=== PATIENT | male | born 1990 | race Two or more races ===

== ENCOUNTER 2022-10-31 07:41 | Inpatient (IN) | payer OTHER ==
[2022-10-31] VITALS (12 sets, daily range): BP systolic 102–129; BP diastolic 56–87
[~2022-10-31] VITALS: Ht 167.6 cm; Wt 60.3 kg
--- NOTE | 2022-10-31 08:00 | NUR ---
ESTABLISHED IV ACCESS 18G LEFT AC. BLOOD DRAWN AND SENT TO LAB.
--- NOTE | 2022-10-31 08:05 | NUR ---
blood collected sent to lab
--- NOTE | 2022-10-31 08:07 | NUR ---
PT DESATURATED TO 80% ON NC. NRB PLACED.
[2022-10-31] MEDS ORDERED: NALOXONE PREFILLED SYRINGE 2 MG/2 ML SYRINGE ONE (08:17)
--- NOTE | 2022-10-31 08:20 | NUR ---
NARCAN GIVEN ORDERED. PT IS MORE AWAKE.
--- NOTE | 2022-10-31 08:20 | NUR ---
MOVE SHEET SUBMITTED.
[2022-10-31] MEDS ORDERED: NALOXONE HCL 0.4 MG/ML AMPUL IV PRN (08:30)
[2022-10-31 08:36] LABS: BASOPHILS % (AUTO) 0.1 % (0.0-2.0); EOSINOPHILS % (AUTO) 0.1 % (0.0-6.0); HEMATOCRIT 43 % (39-51); HEMOGLOBIN 13.4 g/dL (13.5-17.5); LYMPHOCYTES # (AUTO) 1.4 K/uL (0.8-4.8); LYMPHOCYTES % (AUTO) 6.5 % (20.0-44.0); MEAN CORPUSCULAR HGB CONC 31 g/dl (31.0-36.0); MEAN CORPUSCULAR VOLUME 92 fL (80-96); MONOCYTES # (AUTO) 1.3 K/uL (0.1-1.30); MONOCYTES % (AUTO) 6.1 % (2.0-12.0); NEUTROPHILS # (AUTO) 18.3 K/uL (1.8-8.9); NEUTROPHILS % (AUTO) 87.2 % (43.0-81.0); PLATELET COUNT (AUTO) 339 K/uL (150-450); RED BLOOD CELL COUNT(AUTO) 4.63 MIL/uL (4.5-6.0)
--- NOTE | 2022-10-31 08:45 | NUR ---
ABG REFUSED. PT NON COMPLIANT. KNEDELL SIEGEL AWARE.
--- NOTE | 2022-10-31 08:45 | NUR ---
COVID SWAB COLLECTED AND SENT TO LAB
--- NOTE | 2022-10-31 08:46 | NUR ---
URINE COLLECTED AND SENT TO LAB
[2022-10-31] MEDS ORDERED: OLAN5TAB3 PO (08:55)
[2022-10-31] MEDS ORDERED: BUSP10TA35 PO (08:55)
[2022-10-31] MEDS ORDERED: PIPERACILLIN /TAZOBACTAM 3.375 G in IV D5W 50 ML IV ONE (09:00)
[2022-10-31 09:06] LABS: BILIRUBIN,URINE NEGATIVE (NEGATIVE); COLOR,URINE YELLOW (YELLOW); LEUKOCYTE ESTERASE ,URINE NEGATIVE (NEGATIVE); NITRITE, URINE NEGATIVE (NEGATIVE); PH,URINE 5.5 (5.0-8.0); PROTEIN,URINE 2+ mg/dl (NEGATIVE); UGLUCOSE NEGATIVE (NEGATIVE); UROBILINOGEN,URINE 0.2 EU/dL (0.2)
[2022-10-31 09:07] LABS: BACTERIA,URINE None seen /HPF (None Seen); RBC,URINE 0-2 /HPF (0-2); SQUAMOUS EPITHELIAL CELL,UR Few /HPF (None Seen); WBC,URINE 0-2 /HPF (0-3)
--- NOTE | 2022-10-31 09:09 | NUR ---
PT TAKEN TO CT VIA RCHRISTOPHER.
[2022-10-31 09:10] LABS: CALCIUM, SERUM 8.7 mg/dL (8.5-10.1); CARBON DIOXIDE 25 mmol/L (21-32); CHLORIDE 98 mmol/L (98-107); CREATININE 1.6 mg/dL (0.6-1.3); GLUCOSE 87 mg/dL (74-106); POTASSIUM 4.2 mmol/L (3.5-5.1); SODIUM SERUM 136 mmol/L (136-145); UREA NITROGEN, BLOOD 38 mg/dL (7-18)
[2022-10-31 09:18] LABS: ALANINE AMINOTRANSFERASE 175 U/L (12-78); ALCOHOL, BLOOD < 3 mg/dL (0-0); ALKALINE PHOSPHATASE 81 U/L (46-116); ASPARTATE AMINOTRANSFERASE 203 U/L (15-37); BILIRUBIN,DIRECT 0.1 mg/dL (0.0-0.2); BILIRUBIN,TOTAL 0.3 mg/dL (0.2-1.0); TOTAL PROTEIN, SERUM 7.3 g/dL (6.4-8.2)
--- NOTE | 2022-10-31 09:52 | NUR ---
DR. WHITLEY [phone]
[2022-10-31] MEDS ORDERED: VANCOMYCIN 1 GM in IV D5W 250 ML IV ONE (11:00)
[2022-10-31] MEDS ORDERED: ASPIRIN 81 MG TAB.CHEW PO ONE (11:00)
[2022-10-31] MEDS ORDERED: IV NS 0.9% 1,000 ML BAG IV ONE (11:00)
--- NOTE | 2022-10-31 11:20 | NUR ---
PT IN BED ROUSABLE AND RESPONSIVE. CHANGED FROM NON-REBREATHER TO SIMPLE MASK 6L. TOLORATING WELL WITH O2 SAT 100%, BREATHING IS SHALLOW BUT EVEN AND UNLABORED. REPEATE BP READING SHOW 119/70. PERIPHERAL PULSES ARE +2 NAIL BEDS ARE PINK
[2022-10-31] MEDS ORDERED: ASPIRIN 325 MG TABLET ONE (11:28)
[2022-10-31] MEDS ORDERED: LORAZEPAM INJ 2 MG/ML VIAL IV PRN (11:30)
[2022-10-31] MEDS ORDERED: ONDANSETRON HCL/PF 4 MG/2 ML VIAL IVP PRN (11:30)
[2022-10-31] MEDS ORDERED: ACETAMINOPHEN 325 MG TABLET PO PRN (11:30)
[2022-10-31] MEDS ORDERED: Z GUARD REMEDY 4 OZ OINT TP PRN (11:30)
[2022-10-31] MEDS ORDERED: MAG HYDROX/AL HYDROX/SIMETH 30 ML UDC PO PRN (11:30)
[2022-10-31] MEDS ORDERED: MAGNESIUM HYDROXIDE 30 ML UDC PO PRN (11:30)
--- NOTE | 2022-10-31 11:44 | NUR ---
REPORT GIVEN TO MEHDI MCGRATH
--- NOTE | 2022-10-31 11:52 | NUR ---
PT TRANSFERRED TO ICU VIA RMIAMI.
--- NOTE | 2022-10-31 13:19 | NUR ---
NURSING NOTES 1305 RECEIVED CALL FROM LAB STATING THAT PT'S CURRENT LACTIC IS AT 7.4. NOTIFIED DR. SPANGLER.
[2022-10-31] MEDS: CEFEPIME 2 GM in IV D5W 100 ML IV SCH (13:31)
[2022-10-31] MEDS: IV NS 0.9% 1,000 ML IV SCH ×2 (13:31→21:58)
--- NOTE | 2022-10-31 20:00 | NUR ---
Received patient resting in no acute distress.VS stable.Respiration even & unlabored.Patient noncompliant with treatment.Refused O2 NRB.Saturation deep down to 81% but non sustaining it goes up to 93%- 94%.NPO with IVF infusing well to left AC.Site intact.Voiding per urinal. Safety precaution maintained.Call light at bedside.
[2022-10-31] MEDS: VANCOMYCIN 0.75 GM in IV D5W 250 ML IV SCH (22:51)
[2022-11-01] VITALS (13 sets, daily range): BP systolic 107–128; BP diastolic 53–79
[2022-11-01] MEDS: CEFEPIME 2 GM in IV D5W 100 ML IV SCH ×3 (00:41→21:00)
[2022-11-01 03:32] LABS: HEMATOCRIT 36 % (39-51); HEMOGLOBIN 11.8 g/dL (13.5-17.5); LYMPHOCYTES # (AUTO) 0.8 K/uL (0.8-4.8); LYMPHOCYTES % (AUTO) 4.2 % (20.0-44.0); MEAN CORPUSCULAR HGB CONC 33 g/dl (31.0-36.0); MEAN CORPUSCULAR VOLUME 90 fL (80-96); MONOCYTES # (AUTO) 0.4 K/uL (0.1-1.30); MONOCYTES % (AUTO) 2.2 % (2.0-12.0); NEUTROPHILS % (AUTO) 93.6 % (43.0-81.0); PLATELET COUNT (AUTO) 237 K/uL (150-450); RED BLOOD CELL COUNT(AUTO) 3.95 MIL/uL (4.5-6.0); WHITE BLOOD COUNT (AUTO) 19.3 K/uL (4.3-11.0)
[2022-11-01 04:02] LABS: CALCIUM, SERUM 7.9 mg/dL (8.5-10.1); CREATININE 0.8 mg/dL (0.6-1.3); MAGNESIUM 2.1 mg/dL (1.8-2.4); PHOSPHORUS 1.8 mg/dL (2.5-4.9); POTASSIUM 3.6 mmol/L (3.5-5.1)
[2022-11-01] MEDS: IV NS 0.9% 1,000 ML IV SCH ×2 (04:27→11:14)
--- NOTE | 2022-11-01 07:00 | NUR ---
Patient awake oriented x3.VS remains stable.Denies pain or any discomfort.Patient get out of bed to urinate.Urine output adequate.No significant changes noted during the shift.Endorsed to day shift for IDALMIS.
--- NOTE | 2022-11-01 10:00 | NUR ---
NURSING NOTES PT TRANSFERRED TO [facility] GAVE REPORT TO STORM SASH MAKER FOR CONTINUATION OF CARE. PT IS STABLE, VSS, NO COMPLAINT OF PAIN AT THIS TIME.
--- NOTE | 2022-11-01 10:20 | NUR ---
RN NOTE PATIENT WAS TRANSFERRED FROM ICU VIA GURNEY WITH NO SIGNED OF DISTRESS. REPORT RECEIVED FROM ICU NURSE. ORIENTED PATIENT TO ROOM SET UP AND EDUCATED ON THE USE OF CALL LIGHT. PATIENT REFUSED SKIN ASSESSMENT AND PICTURES. V/S TAKEN, STABLE AND RECORDED. PATIENT AWAKE IN BED RESTING, A/O X 3. NO S/S OF PAIN NOTED AT THIS TIME. ON ROOM AIR BREATHING EVEN UNLABORED, NO DISTRESS OR SHORTNESS OF BREATH NOTED AT THIS TIME. IV ACCESS LAC #20G, INTACT PATENT AND FLUSHING WELL. PATIENT WITH EXTERNAL FLAT FINISHER WITH CURRENT READING OF ST AND HR 110. FALL AND SAFETY MEASURES IN PLACE, BED ALARM ON, BED IN LOW AND LOCK POSITION, CALL LIGHT AND TABLE WITHIN EASY REACH, SIDE RAILS UP X2. WILL CONTINUE TO MONITOR.
[2022-11-01] MEDS ORDERED: NEUTRA PHOS 1 POWD.PACKET PO ONE (11:00)
[2022-11-01] MEDS: VANCOMYCIN 0.75 GM in IV D5W 250 ML IV SCH ×2 (11:14→17:10)
--- NOTE | 2022-11-01 18:54 | NUR ---
RN CLOSING NOTES PATIENT AWAKE IN BED RESTING, A/O X 3. UNCOOPERATIVE, PATIENT REFUSING SKIN ASSESSMENT AND PICTURES. PATIENT NOW IS REFUSING IV FLUIDS MULTIPLE ATTEMPTS WERE MADE BUT PATIENT KEEP REFUSING. DOCTOR ANÍBAL WAS INFORMED, IV FLUIDS CAN BE D/C PER DOCTOR. PATIENT WON'T STOP SCREAMING AND ASKING FOR FOOD AND DRINKS, ADDITIONAL DRINKS, SNACKS, SANDWICH WAS PROVIDE TO PATIENT. NO S/S OF PAIN NOTED AT THIS TIME. ON ROOM AIR BREATHING EVEN UNLABORED, NO DISTRESS OR SHORTNESS OF BREATH NOTED AT THIS TIME. IV ACCESS LAC #20G, INTACT PATENT AND FLUSHING WELL. PATIENT HAD EXTERNAL OFFICE COPY SELECTOR WITH CURRENT READING OF ST AND HR 110 BUT PATIENT KEPT TAKING IT OFF, DOCTOR WAS INFORMED AND IT WAS D/C. EXTERNAL OFFICE COPY SELECTOR WAS RETURNED TO TELE DESK. FALL AND SAFETY MEASURES IN PLACE, BED ALARM ON, BED IN LOW AND LOCK POSITION, CALL LIGHT AND TABLE WITHIN EASY REACH, SIDE RAILS UP X2. WILL ENDORSE TO RATE ENGINEER NURSE.
--- NOTE | 2022-11-01 19:15 | NUR ---
RN OPENING NOTES RECEIVED PT AWAKE IN BED RESTING, A/O X3. UNCOOPERATIVE, C/O OF BEING COLD BUT REFUSES TO WEAR CLOTHES/GOWN. PATIENT REFUSING SKIN ASSESSMENT. NO S/S OF PAIN NOTED AT THIS TIME. ON RA BREATHING EVEN UNLABORED, NO DISTRESS OR SHORTNESS OF BREATH NOTED AT THIS TIME. IV ACCESS LAC #20G, INTACT PATENT AND FLUSHING WELL. FALL AND SAFETY MEASURES IN PLACE, BED ALARM ON, BED IN LOW AND LOCK POSITION, CALL LIGHT AND TABLE WITHIN EASY REACH, SIDE RAILS UP X2. WILL CONTINUE TO MONITOR AND ASSIST.
--- NOTE | 2022-11-01 20:45 | NUR ---
RN NOTE PT REFUSING TO TAKE SCHEDULED MAXIPIME 2GM FOR 2100. PT STATES HE'S OKAY. EXPLAINED TO PT RISKS/BENEFITS OF MEDICATION AND VERBALIZED UNDERSTANDING.
[2022-11-01] MEDS ORDERED: IV NS 0.9% 1,000 ML IV PRN (21:30)
[2022-11-02] VITALS: BP 140/93
[2022-11-02 00:05] VITALS: BP 140/93
[2022-11-02] MEDS: VANCOMYCIN 0.75 GM in IV D5W 250 ML IV SCH ×3 (02:00→17:20)
--- NOTE | 2022-11-02 04:24 | NUR ---
RN NOTE PT CONTINUES TO REFUSED IV ANTIBIOTIC MEDS. EXPLAINED RISK/BENEFITS. PT JUST REFUSES AND STATES "I JUST WANT TO REST".
[2022-11-02] MEDS: CEFEPIME 2 GM in IV D5W 100 ML IV SCH ×3 (04:26→20:23)
--- NOTE | 2022-11-02 06:47 | NUR ---
RN CLOSING NOTES PT SLEEPING IN BED AT THIS TIME. A/O X3. UNCOOPERATIVE. DENIES PAIN AT THIS TIME. STABLE ON RA BREATHING EVEN UNLABORED, NO DISTRESS OR SHORTNESS OF BREATH NOTED. IV ACCESS LAC #20G, INTACT PATENT AND FLUSHING WELL. ALL CARE PROVIDED. PT REFUSING ALL MEDS THROUGHOUT THE SHIFT AND BLOOD DRAW IN AM. FALL AND SAFETY MEASURES MAINTAINED: BED ALARM ON, BED IN LOW AND LOCK POSITION, CALL LIGHT AND TABLE WITHIN EASY REACH, SIDE RAILS UP X2. WILL ENDORSE IDALMIS TO DAY SHIFT NURSE.
--- NOTE | 2022-11-02 07:46 | NUR ---
MS RN OPENING NOTES: RECEIVED PT ASLEEP, EASILY ROUSED, A/O X3, PER PM, SHIFT, PT IS UNCOOPERATIVE WITH PLAN OF CARE. DENIES PAIN AT THIS TIME. STABLE ON RA BREATHING EVEN UNLABORED, NO DISTRESS OR SHORTNESS OF BREATH NOTED. IV ACCESS LAC #20G, INTACT PATENT AND FLUSHING WELL. SAFETY MEASURES MAINTAINED: BED ALARM ON, BED IN LOW AND LOCK POSITION, CALL LIGHT AND TABLE WITHIN EASY REACH, SIDE RAILS UP X2. WILL CONT WITH PLAN OF CARE DURING SHIFT.
--- NOTE | 2022-11-02 09:50 | NUR ---
RN NOTES: PT REFUSED AM LABS @ 0800, OF BLOOD DRAW, PT STILL REFUSED AND STATED " I DON'T NEED IT, I WANT TO GO HOME". PT REFUSED IV ABX RN EXPLAINED RATIONALE OF MEDICATION, PT STILL REFUSED PT REFUSED CHEST XRAY, STATES " HE DOESN'T NEED IT" PT THINKS THAT "HOSPITAL JUST WANTS TO MAKE MONEY FROM ME". RN STATES RATIONALE OF TEST, PT STILL DECLINED. MADE MACHINE LONG GOODS HELPER AWARE.
--- NOTE | 2022-11-02 11:47 | NUR ---
DECLINED NEW LAB ORDERS, EXPLAINED TO PT IMPORTANCE OF LAB DRAW, STILL DECLINED. MADE SENIOR SYSTEMS ENGINEER AWARE
--- NOTE | 2022-11-02 13:00 | NUR ---
RN NOTES: PT REMOVED IV ACCESS, STATES " I DON'T NEED THIS SHIT ANYMORE, PLEASE CALL MY MOM I NEED TO GO HOME". RN CONTACTED PT'S MOTHER, CONTACT # PROVIDED BY PT. PT SPOKE TO HIS MOTHER, PASSED PHONE TO RN. PT'S MOTHER STATES SHE "CAN'T TAKE HER SON IN" AND THAT SHE NEEDS TO CONTACT PT'S PRIMARY MD TO GET HIM SOME RESOURCES. RN WILL FOLLOW UP WITH COMMUNICATION ARTS LECTURER.
--- NOTE | 2022-11-02 16:00 | NUR ---
RN NOTES; RN SPOKE TO DR MCCONNELL, SHANEL TERRY. HAY BALER FROM [facility] DEPT OF MENTAL HEALTH SERVICES. THEIR OFFICE FAXED PT'S CURRENT PSYCH MEDICATION, THEIR OFFICE WILL FACILITATE HOUSING ONCE PT IS DC CONTACT # DR MCCONNELL- [phone] DR SNOWDEN - [phone] SHANEL - [phone],
--- NOTE | 2022-11-02 16:45 | NUR ---
SS Consult requested for homelessness. The pt. is a 31-year-old male pt. who was admitted to [facility] for Sepsis per EMR. Bystanders called paramedics when they noted the patient to be "passed out," unresponsive on the sidewalk, per EMR. Upon SS consult, the pt. is Alert & Oriented x 4 and makes good eye contact. The pt. appears disheveled. Pt. has dysphoric mood & flat affect. Pt. has normal speech and normal thought process. Pt. was restless & somewhat cooperative throughout interview. The pt. denies current SI/HI and denies current hallucinations. SW explored pt.s mental health Hx. Pt. denies any Hx. of mental health. SW explored pt.s living situation, Pt. states he is currently experiencing homelessness and states he would like his mother to be called to pick him up. However, per Nurses note the mother states she cannot take in the pt. BETTINA explored pt.s drug & ETOH use. Pt. denies any drug or alcohol use. BETTINA provided pt. with addiction resources and he accepted them and provided the following MAT referrals for Fentanyl use: [facility]: [address] [place] [address] Intake hours: 5:45am9:00am, walk-ins Saturday, Saturday, [facility]: [address] [place] [address] Intake hours: 5:45am12:30pm, Saturday and [facility]: [address] [place] [address] Intake hours: 8:00am2:00pm, Saturday through Saturday Pt. was administered nracan on 10/31/2022 per EMR. Pt. is in the pre--contemplation stage of change. Per pt. he is normally ambulatory and independent with most of his ADLs. Plan: Per pt. he would like his mother, to pikc him up but mother has stated she cannot take him in. BETTINA provided pt. with resources for homelessness: shelters, hot meals, showers, addiction rehab mental health clinics etc. Pt. accepted resources and pt. signed homeless waiver which was placed in the pt.s chart. Winter Snf list : [place] [facility]; [facility] Adult WSP site; [facility] Adult WSP site; and [facility] Adult WSP site; instruction to call 211 for availability. Year-round shelters: [facility] [address] [place], [place] [phone] ; [facility] [address] [facility] [place] [address]; [facility] [employer] [facility] [address] [facility] [place] [address] Hygiene: [facility]: [address] [place] ; [place] [facility] [address] [facility] ; [facility] [address] [facility] . Food Resources: [place] [facility] at [facility]- [address] [facility]. [place]; Meet Each Need with Dignity ([facility]) [address] [facility] [place]; [facility] Food [facility]ry [address] [facility]; [facility] [address] [facility]. Mental Health resources provided: [facility] [address] [place], [place] [address] ; [facility] [place] [address] [facility] [address], [place], [place] [id number] ; [facility] [address] [place], [place] [phone] ; [facility] [address] [place], [place] [phone] Healthcare Clinics: [facility] [address] [facility] [place]. [place] ; [facility] [address] [facility] [address] [place] [address]; [facility] [address] [facility]. [place] [phone] Counseling--Outpatient [facility] [address] [facility], [place] [address] (Specializes in in-depth psychotherapy for emotional distress: anxiety, depression, interpersonal conflicts, life transitions, childhood abuse) [facility] [address] [place] [address] (Assist with solving problem marital difficulties, separation & divorce, aging parents, & grief, chronic & terminal illness) [facility] [address] [place] [address] (Deal with loss & grief, anxiety, marital difficulties) Homebound/Mental Health Services [address] [facility] [address] [place] [address] (Provide in-home mental services to people who are incapable of leaving their homes) [facility] Elder[facility] Senior Service/Resource Center [address] [place] [address] [facility] [address] [place], [place] [address] PSYCHIATRIC OUTPATIENT SERVICES [facility] Partial Hospitalization and Intensive Outpatient Program (Managed Care and [place] Only)[address] [facility] [phone] [facility] Partial Hospitalization and Outpatient Iqgsoza[address] [facility] [address] [place], [place] [phone] [facility] Mental Health Center Ozi[address] [facility] [address] [place], [place] [phone] [facility] Partial Hospitalization and Outpatient Oelqixe09548 [place], [phone] Substance Abuse resources provided included: [facility] Substance Abuse Self-Helpline (SAS) ; [facility] [address] [facility] [place]. [place] [address] ; [facility] [address] [facility] [address] ; [facility] [address] [place] [address] ; [facility] [address] [facility] [phone] ; [facility] Treatment [facility] [address] [facility] [address] ; [facility]oc[facility] [address] [facility] [phone] ; [facility] Substance Abuse Helpline(SAS)-[facility] ; [facility] Family Counsel[facility] ; [facility] [place]; [facility] [place]; [facility] [place]; [facility] [place]; [facility] [place]; Alburtis Silvis [place]; [facility] [place]; [facility] [place]; Alcoholics Anonymous -SFV; Mj-Wsou-Xzmqgwf ; Marijuana Anonymous -SFV; Narcotics Anonymous www.na.org;
--- NOTE | 2022-11-02 18:30 | NUR ---
RN NOTES: REFUSED REFUSED ALL LAB TESTS, RN EXPLAINED RATIONALE FOR BLOOD DRAW, PT STILL REFUSED, ASKED FOR SNACKS INSTEAD PT IS PENDING PSYCH CONSULT
--- NOTE | 2022-11-02 18:40 | NUR ---
RN CLOSING NOTES: PT ASLEEP, EASILY ROUSED, A/O X3, ABLE TO MAKE NEEDS KNOWN. STABLE ON RA BREATHING EVEN UNLABORED, NO DISTRESS OR SHORTNESS OF BREATH NOTED. IV ACCESS REMOVED BY PT AND REFUSED RE -INSERTION. PT STATES "HE DOESN'T NEED IT". PT HAS BEEN NON COMPLIANT WITH TESTS AND TREATMENT, THROUGHOUT SHIFT, MADE MD AND CROZER OPERATOR AWARE. PT GIVEN SNACKS AND PO FLUIDS UPON REQUEST. SAFETY MEASURES MAINTAINED: BED ALARM ON, BED IN LOW AND LOCK POSITION, CALL LIGHT AND TABLE WITHIN EASY REACH, SIDE RAILS UP X2. WILL ENDORSE TO PM SHIFT.
--- NOTE | 2022-11-02 19:30 | NUR ---
MS RN OPENING NOTES: RECEIVED PT AWAKE IN BED. PATIENT IS A/O X3, PATIENT IS UNCOOPERATIVE WITH PLAN OF CARE PER PREVIOUS SHIFT NURSE. PATIENT REFUSED IV ATB . PATIENT PULLED OUT THE IV AND DID NOT WANT TO HAVE A NEW IV. DENIES PAIN AT THIS TIME. STABLE ON RA BREATHING EVEN UNLABORED, NO DISTRESS OR SHORTNESS OF BREATH NOTED. REMINDED THE PATIENT TO PRESS CALL LIGHT FOR ANY ASSISTANCE. VERBALIZED UNDERSTANDING. ASKED FOR A PEACE OF BREAD . WILL PROVIDE PATIENT WITH SANDWICH JON. TRYING TO BUILD TRUST IN COMMUNICATION SO THE PATIENT WILL BE MORE COMPLIANT. ALL SAFETY MEASURES MAINTAINED: BED ALARM ON, BED IN LOW AND LOCK POSITION, CALL LIGHT AND TABLE WITHIN EASY REACH, SIDE RAILS UP X2. WILL CONT WITH PLAN OF CARE DURING SHIFT.
[2022-11-02 20:00] VITALS: BP 129/73
--- NOTE | 2022-11-02 21:00 | NUR ---
RN NOTES PATIENT REFUSED REINSERTION OF IV ACCESS. PATIENT REFUSED IV ANTIBIOTICS. ASKED THE PATIENT IF HE WILL TAKE ORAL ANTIBIOTICS, PATIENT GOT MAD AND STATED " GOOD NIGHT AND GO OUT". EDUCATE THE PATIENT THE USE , IMPORTANCE AND NECESSITY OF THE MEDICATIONS, BUT PATIENT STILL STRONGLY REFUSING. CHARGE NURSE AWARE OF THE PATIENT'S REFUSAL BEHAVIOR.
[2022-11-03] MEDS: VANCOMYCIN 0.75 GM in IV D5W 250 ML IV SCH (02:00)
--- NOTE | 2022-11-03 02:00 | NUR ---
RN NOTES PATIENT REFUSED VANCOMYCIN IV FOR 0200. EDUCATE THE PATIENT FOR THE USE AND IMPORTANCE OF THE MEDICATION , BUT PATIENT STRONGLY REFUSES THE MEDICATION AND REINSERTION OF THE IV. RESPECT PATIENT'S RIGHTS.
[2022-11-03] MEDS: CEFEPIME 2 GM in IV D5W 100 ML IV SCH (04:38)
--- NOTE | 2022-11-03 06:34 | NUR ---
MS RN CLOSING NOTES: PT AWAKE IN BED. PATIENT IS A/O X3, PATIENT WAS UNCOOPERATIVE WITH PLAN OF CARE DURING SHIFT.. PATIENT REFUSED IV ATBS . PATIENT DENIES PAIN AT THIS TIME. STABLE ON RA BREATHING EVEN UNLABORED, NO DISTRESS OR SHORTNESS OF BREATH NOTED. REMINDED THE PATIENT TO PRESS CALL LIGHT FOR ANY ASSISTANCE. VERBALIZED UNDERSTANDING.PATIENT REFUSED MORNING CARE, ALL ATB IV MEDICATIONS, AND IV REINSERTION. ALL SAFETY MEASURES MAINTAINED: BED ALARM ON, BED IN LOW AND LOCK POSITION, CALL LIGHT AND TABLE WITHIN EASY REACH, SIDE RAILS UP X2. WILL ENDORSE FOR INCOMING SHIFT NURSE FOR IDALMIS.
--- NOTE | 2022-11-03 07:05 | NUR ---
MS RN OPENING NOTES: PT SLEEPING IN BED BUT AROUSABLE, A/O X3, DENIES PAIN AT THIS TIME. STABLE ON RA BREATHING EVEN UNLABORED, NO DISTRESS OR SHORTNESS OF BREATH NOTED. ALL SAFETY MEASURES MAINTAINED: BED ALARM ON, BED IN LOW AND LOCK POSITION, CALL LIGHT AND TABLE WITHIN EASY REACH, SIDE RAILS UP X2. WILL CONTINUE TO MONITOR PATIENT FOR IDALMIS.
--- NOTE | 2022-11-03 09:25 | NUR ---
PATIENT REFUSED BLOOD DRAW AGAIN. RN EDUCATED THE PATIENT BUT STILL REFUSED.
--- NOTE | 2022-11-03 11:05 | NUR ---
PATIENT DECIDED TO LEAVE THE HOSPITAL AGAINST MEDICAL ADVICE. PATIENT SIGNED THE FORM AND LEFT AT 1102. DR. MARTINEZ CAME TO SEE THE PATIENT EARLIER BUT THE PATIENT REFUSED TO SPEAK TO THE DOCTOR. PATIENT'S MOM WAS CALLED (RECORD ON FILE) BUT TO NO AVAIL.
== END 2022-11-03 11:00 | disposition left against medical advice (07) | DRG 812 ==
LOC: ER 07:45 → ICU 11:38 → TELE 11-01 10:33 → MED 11-02 06:00
PROVIDERS: ADMIT Internal Medicine; ATTEND Internal Medicine
DX: T40.411A Poisoning by fentanyl or fentanyl analogs, accidental (unintentional), initial encounter (principal); N17.0 Acute kidney failure with tubular necrosis; J96.01 Acute respiratory failure with hypoxia; R65.21 Severe sepsis with septic shock; J69.0 Pneumonitis due to inhalation of food and vomit; A41.9 Sepsis, unspecified organism; G92.9 Unspecified toxic encephalopathy; I21.4 Non-ST elevation (NSTEMI) myocardial infarction; J15.6 Pneumonia due to other Gram-negative bacteria; E87.20 Acidosis, unspecified; E83.39 Other disorders of phosphorus metabolism; M62.82 Rhabdomyolysis; Z20.822 Contact with and (suspected) exposure to COVID-19; I21.A1 Myocardial infarction type 2; Z59.00 Homelessness unspecified; Z79.899 Other long term (current) drug therapy; F39 Unspecified mood [affective] disorder; F19.10 Other psychoactive substance abuse, uncomplicated; Y92.89 Other specified places as the place of occurrence of the external cause; T43.621A Poisoning by amphetamines, accidental (unintentional), initial encounter
CPT/HCPCS: 36415; 70450-TC; 71045-TC; 80048-TC; 80076-TC; 81001; 82550-TC; 82553; 83605-TC; 83735-TC; 83880; 84100-TC; 84484-TC; 85025-TC; 87040-TC; 87081-TC; A4223; C9803; G0378; G0480; J0692; J2310; J2543; J3370; J7030; J7040; J7060